=== PATIENT | female | born 1975 | race Caucasian/White ===

== ENCOUNTER 2018-02-12 06:55 | Day surgery (SDC) | payer OTHER ==
[~2018-02-12] VITALS: Ht 160 cm; Wt 118.6 kg
[~2018-02-12 06:55] MED LIST: ALBU90OI INH; ALLEGRA ALLERGY60 MG PO; Aspir 8181 MG PO; Biotin10 MG PO; Complex B-1001 EACH PO; Excedrin Extra1 EACH PO; Flonase 0.05% N16 GM; LABE200 PO; LISI5; MONO-LINYAH1 EACH PO; MONTELUKAST SOD10 MG PO; MULTI VITAMIN1 EACH PO; Pravastatin Sod40 MG PO; TRIAOI; TRIAOIA
[2018-02-12] MEDS ORDERED: DIPH50 (08:02)
== END 2018-02-12 11:01 | disposition home or self-care (01) ==
LOC: ORSCSDS 06:55
PROVIDERS: Surgery
PROC: 0JB70ZZ Excision of Back Subcutaneous Tissue and Fascia, Open Approach (ICD-10-PCS; principal; 2018-02-12 08:30)
DX: D17.1 Benign lipomatous neoplasm of skin and subcutaneous tissue of trunk (principal); I10 Essential (primary) hypertension; J45.909 Unspecified asthma, uncomplicated; E66.01 Morbid (severe) obesity due to excess calories; Z68.42 Body mass index [BMI] 45.0-49.9, adult; Z87.891 Personal history of nicotine dependence; Z79.899 Other long term (current) drug therapy; Z79.82 Long term (current) use of aspirin
CPT/HCPCS: 88304; J0690; J1100; J1885; J2001; J2250; J2405; J3010; J7120

== ENCOUNTER → 2020-03-19 | Outpatient (CLI) | payer OTHER ==
[~2020-03-19] MED LIST changes: +DIPH50
== END | disposition home or self-care (01) ==
LOC: PLD 11:15 → LAB SHORT 11:15
DX: L30.8 Other specified dermatitis (principal)
CPT/HCPCS: 88305; 88312

== ENCOUNTER 2024-02-01 09:32 | Emergency (ER) | payer OTHER ==
[~2024-02-01] VITALS: Ht 162.6 cm; Wt 113.4 kg
[2024-02-01 10:13] VITALS: BP 156/91
[2024-02-01 11:00] LABS: BASOPHILS ABSOLUTE AUTO 0.03 K/mm3 (0.00-0.23); BASOPHILS PERCENT AUTO 0 % (0-2); EOSINOPHILS ABSOLUTE AUTO 0.17 K/mm3 (0.00-0.68); EOSINOPHILS PERCENT AUTO 1 % (0-6); Hematocrit 38.9 % (33.0-51.0); Hemoglobin 12.8 g/dL (11.5-16.0); IMMATURE GRAN ABSOLUTE AUTO 0.04 K/mm3 (0.00-0.10); IMMATURE GRAN PERCENT AUTO 0 % (0-1); LYMPHOCYTES ABSOLUTE AUTO 0.81 K/mm3 (0.84-5.20); LYMPHOCYTES PERCENT AUTO 7 % (21-46); MONOCYTES ABSOLUTE AUTO 0.33 K/mm3 (0.16-1.47); MONOCYTES PERCENT AUTO 3 % (4-13); Mean Corpuscular HGB 29.6 pg (26.0-34.0); Mean Corpuscular HGB Conc 32.9 g/dL (31.5-36.5); Mean Corpuscular Volume 90 fL (80-100); Mean Platelet Volume 8.6 fL (9.1-12.4); NEUTROPHILS ABSOLUTE AUTO 10.89 K/mm3 (1.96-9.15); NEUTROPHILS PERCENT AUTO 89 % (41-73); Platelet Count 346 K/mm3 (150-400); RDW Coefficient Variation 13.2 % (11.7-14.2); RDW Standard Deviation 43.8 fL (35.1-46.3); Red Blood Cell Count 4.33 M/mm3 (3.80-5.20); White Blood Cell Count 12.27 K/mm3 (4.00-11.30)
[2024-02-01 11:30] LABS: Albumin, Blood 4.4 g/dL (3.4-5.0); Albumin/Globulin Ratio 1.3 (0.8-1.8); Bilirubin, Total 0.8 mg/dL (0.1-1.0); Bun/Creatinine Ratio 11.6 (12.0-20.0); Calcium, Blood 11.8 mg/dL (8.5-10.1); Creatinine, Blood 0.69 mg/dL (0.40-1.00); Globulin, Blood 3.3 g/dL (2.2-4.0); Potassium, Blood 4.4 mmol/L (3.5-5.5); Total Protein, Blood 7.7 g/dL (6.4-8.2)
[2024-02-01] MEDS ORDERED: Ondansetron 4 MG SoluTab MM ONE (12:40)
[2024-02-01] MEDS ORDERED: HYDROcodone 7.5-APAP 325 TAB PO ONE (12:45)
[2024-02-01] MEDS ORDERED: HYDACE10B PO (13:56)
[2024-02-01] MEDS ORDERED: ONDA4ODT MM (13:56)
[2024-02-03] MEDS ORDERED: HYDACE10B PO (14:45)
[2024-02-03] MEDS ORDERED: ONDA4ODT MM (14:45)
== END 2024-02-01 14:20 | disposition home or self-care (01) ==
LOC: ER 09:32
PROVIDERS: Physician Assistant
DX: K80.10 Calculus of gallbladder with chronic cholecystitis without obstruction (principal); Z79.899 Other long term (current) drug therapy; Z79.82 Long term (current) use of aspirin; Z87.891 Personal history of nicotine dependence
CPT/HCPCS: 76705; 80053; 83690; 85025; 99284-25; A9270

== ENCOUNTER 2024-04-19 06:21 | Day surgery (SDC) | payer OTHER ==
[~2024-04-19] VITALS: Ht 160 cm; Wt 110.6 kg
[~2024-04-19 06:21] MED LIST changes: +CRANBERRY500 M1 PO; +CULTURELLE KID1 EA13; -DIPH50; +DIPH50 PO; +HYDACE10B PO; +LISI20 PO; +Lactated Ringer's 1,000 ML IV SCH; +Norco 10-325 T1 EACH PO; +Norethindrone0.35 MG PO; +ONDA4ODT MM; +OZEMPIC0.25 MG/02 SC; +THERA-D2000 UNIT PO
[2024-04-19] MEDS ORDERED: Indocyanine Green 25 MG Vial IV ONE (06:25)
[2024-04-19 06:47] VITALS: BP 143/77
[2024-04-19] MEDS ORDERED: Bupivacaine 0.5% W/EPI 1:200000 SDV 30 ML Vial ONE (06:57)
--- NOTE | 2024-04-19 07:17 | NUR ---
PT AMB TO DAY SURGERY UNIT WITH STEADY GAIT. History, Chart, Medications and Allergies reviewed before start of procedure. Pre-Op teaching done. Pt verbalizes understanding. Patient States Post-Procedure ride home has been arranged WITH [employer]. GLASSES PLACED IN PACU WITH PT LABEL ON. SPOUSE AT BEDSIDE. PT DENIES ANY FURTHER QUESTIONS AT THIS TIME. WARM BLANKET GIVEN.
[2024-04-19] MEDS ORDERED: FentaNYL Citrate 50 MCG/ML 2 ML Injection ONE ×2 (07:28→09:28)
[2024-04-19] MEDS ORDERED: propofoL 20 ML IV ONE (07:28)
[2024-04-19] MEDS ORDERED: Lidocaine HCl 2% 20 ML MDV ONE (07:29)
[2024-04-19] MEDS ORDERED: Rocuronium Bromide 10 MG/ML 5ML Injection IV ONE ×2 (07:29→07:50)
[2024-04-19] MEDS ORDERED: Dexamethasone Sod Phos 10 MG/ML 1ML VIAL ONE (07:29)
[2024-04-19] MEDS ORDERED: Haloperidol Lactate Inj. 5 MG/ML Injection IV PRN (08:05)
[2024-04-19] MEDS ORDERED: HYDROmorphone HCl/Pf 1MG SYR ONE (08:09)
[2024-04-19] MEDS ORDERED: Ketorolac Tromethamine 30mg Vial ONE (08:47)
[2024-04-19] MEDS ORDERED: Ondansetron HCl 2 MG / ML 2ML Vial ONE ×2 (08:47→09:28)
[2024-04-19] MEDS ORDERED: Sugammadex Sodium 200 MG/2ML SDV (100 MG/ML) ONE (08:49)
[2024-04-19] MEDS ORDERED: HYDROcodone 5-APAP 325 TAB PO PRN (09:25)
[2024-04-19 09:45] VITALS: BP 116/68
[2024-04-19 09:58] VITALS: BP 130/75
[2024-04-19 10:15] VITALS: BP 132/64
--- NOTE | 2024-04-19 10:36 | NUR ---
Patient up to Ambulate independently. Gait steady. Discharge instructions reviewed with patient. Patient verbalizes understanding. Copy given to patient to take home, [facility] FAMILY. Patient States Post-Procedure ride home has been arranged. Discharged via wheelchair to private car for ride home. PT TOLERATING PO. REPORTS NAUSEA BETTER. REPORTS READY TO GO HOME. PT SENT WITH BELONGING AND ICE PACK. PT DECLINES PAIN PILL, REPORTS PAIN DOING WELL. INCISIONS C/D/I.
== END 2024-04-19 10:36 | disposition home or self-care (01) ==
LOC: ORSCMMR 06:21 → ORD 07:30 → ORSCMMR 07:30
PROVIDERS: Surgery
PROC: 0FT44ZZ Resection of Gallbladder, Percutaneous Endoscopic Approach (ICD-10-PCS; principal; 2024-04-19 07:30)
DX: K80.20 Calculus of gallbladder without cholecystitis without obstruction (principal); I10 Essential (primary) hypertension; G47.33 Obstructive sleep apnea (adult) (pediatric); J45.909 Unspecified asthma, uncomplicated; Z87.891 Personal history of nicotine dependence; K21.9 Gastro-esophageal reflux disease without esophagitis; E66.01 Morbid (severe) obesity due to excess calories; Z68.41 Body mass index [BMI] 40.0-44.9, adult; Z79.899 Other long term (current) drug therapy; E78.5 Hyperlipidemia, unspecified; Z79.85 Long-term (current) use of injectable non-insulin antidiabetic drugs
CPT/HCPCS: 88304; J1100; J1171; J1885; J2405; J2704; J3010; J7120

== ENCOUNTER → 2024-11-07 | Outpatient (CLI) | payer OTHER ==
[~2024-11-07] MED LIST changes: -Lactated Ringer's 1,000 ML IV SCH
[2024-11-07 11:06] LABS: Calcium, Urine 25.1 mg/dL (< 17.5); Calcium, Urine Calculation 627.5 mg/24hrs (42.0-353.0)
== END | disposition home or self-care (01) ==
LOC: LAB 06:00 → LAB SHORT 06:00 → LAB FUT 10-31 17:00
PROVIDERS: Surgery
DX: E21.0 Primary hyperparathyroidism (principal)
CPT/HCPCS: 81050; 82340; 82570